=== PATIENT | male | born 1995 | race Caucasian/White ===

== ENCOUNTER 2020-05-15 07:15 | Inpatient (IN) | payer BC ==
[~2020-05-15] VITALS: Ht 182.9 cm; Wt 95.3 kg
--- NOTE | 2020-05-15 07:34 | NUR ---
SE RECIBE PTE ALERTA Y ORIENTADO X3,REFIERE LLEVAR 3 MARX CON FIEBRE,DOLOR EN EL CUERPO ,CEFALEA OXIGENANDO 94 %,101.0 TEMP ,TOOTIE MEDICAMENTO PARA LA FIEBRE HOY.
--- NOTE | 2020-05-15 09:26 | NUR ---
PTE ALERTA Y ORIENTADO X3, CON BUEN PATRON RESPIRATORIO Y SIGNOS VITALES ESTABLES, SE ADMINISTRAN MEDICAMENTO TAMMIE ORDENADO, SE KAMILAH MUESTRAS BAJO MEDIDAS ASEPTICAS Y SE ABRE VENOPUNCION CHAZ DE EDEMA Y/O ENROJECIMIENTO CON ANGIO #[id number]. SE TIKA TRANQUILO EN NADEEN EN ESPERA A SER REEVALUADO POR .
== END 2020-05-19 09:59 | disposition home or self-care (01) | DRG 866 ==
LOC: ER 07:15 → MEDI 17:06 → MEDJ 17:06
PROVIDERS: ADMIT Internal Medicine; ATTEND Internal Medicine
DX: A90 Dengue fever [classical dengue] (principal); E86.0 Dehydration; D72.818 Other decreased white blood cell count; Z20.828 Contact with and (suspected) exposure to other viral communicable diseases